=== PATIENT | male | born 1985 | race Caucasian/White ===

== ENCOUNTER 2016-07-27 07:41 | Emergency (ER) | payer SELFPAY ==
[~2016-07-27] VITALS: Ht 175.3 cm; Wt 73.8 kg
[~2016-07-27 07:41] MED LIST: ALBUAER19 INH; FLUT110A INH; HYDR-5688 PO
[2016-07-27 07:46] VITALS: BP 123/78; PULSE 85; TEMP 36.8; O2SAT 96; Ht 175.3 cm; Wt 73.8 kg
--- NOTE | 2016-07-27 08:32 | EMERGENCY ROOM VISIT NOTE ---
History Report prepared by Daisy: Rosa M Srinivasan Under the Supervision of: Dr. Marko Verma M.D. First contact with patient: 07:50 Chief Complaint: DIARRHEA Stated Complaint: DEHYDRATION,DIARRHEA Nursing Triage Summary: Diarrhea 3-4 days, low back pain. Denies n/v History of Present Illness The patient is a 30 year old male who presents to the Emergency Room with complaints of persistent diarrhea for the past 3 days. Last night was the worst of his symptoms. He reports being up all night with diarrhea. He was sent to the ED by his boss for a work excuse. He has been taking Pepto Bismol to no significant relief. He reports lower back pain. He denies any vomiting, fever, abdominal pain, or bloody diarrhea. He feels dehydrated and has been drinking a lot of fluids. He has been urinating. He does not recall eating any bad food. His grandmother was similarly sick recently. He has an appetite and has been eating soup. He denies having any medical problems. Source of History: patient Onset: 3 days ago Position: other (global) Quality: other (diarrhea) Timing: other (persistent) Associated Symptoms: + back pain (lower), No abdominal pain, No fevers, No vomiting Note: Pt denies bloody diarrhea. Review of Systems See HPI for pertinent positives & negatives. A total of 10 systems reviewed and were otherwise negative. Past Medical & Surgical Medical Problems: (1) Asthma (2) Bronchitis (3) Pleurisy (4) PNEUMONIA, ORGANISM NOS Family History No significant family history Social History Smoking Status: Former Smoker Alcohol Use: none Housing Status: lives with family Occupation Status: employed Current/Historical Medications Scheduled Fluticasone Propionate Hfa (Flovent Hfa 110MCG Inhaler), 1 PUFF INH BID Scheduled PRN Albuterol Inhaler (Ventolin Inhaler), 2 PUFFS INH UD PRN for SOB/Wheezing Hydrocodone/Acetaminophen 5MG/325MG ([place] 5MG/325MG), 1-2 TABLET PO Q6H PRN for Pain Allergies Coded Allergies: No Known Allergies (Verified , 03/25/14) Physical Exam Vital Signs Date Time Temp Pulse Resp B/P Pulse Ox O2 Delivery O2 Flow Rate FiO2 07/27/16 07:46 36.8 85 16 123/78 96 Room Air Physical Exam GENERAL: Patient is in no acute distress. HEENT: No acute trauma, normocephalic atraumatic, mucous membranes moist, no nasal congestion, no scleral icterus. NECK: No stridor, no adenopathy, no meningismus, trachea is midline. LUNGS: Clear to auscultation bilaterally, no wheeze, no rhonchi, breath sounds equal. HEART: Without murmurs gallops or rubs, regular rate and rhythm. ABDOMEN: Soft, mildly diffusely tender, bowel sounds positive and hyperactive, no hernias, no peritonitis. EXTREMITIES: No cyanosis or edema, full range of motion of all the joints without pain or difficulty, no signs for acute trauma. NEUROLOGIC: Oriented x 3, no acute motor or sensory deficits, no focal weakness. SKIN: No rash, no jaundice, no diaphoresis. Medical Decision & Procedures ED Course 0754: The patient was evaluated in room B2. A complete history and physical exam was performed. 0800: Reevaluated the patient. Discussed results and discharge instructions: he verbalized understanding and agreement. The patient is ready for discharge. Medical Decision Differential diagnosis: food borne or viral illness, dehydration, UTI, diverticulitis, electrolyte imbalance, GI bleeding. The patient presents with a few days of diarrhea. He has an appetite and has been trying to stay hydrated. He is still making urine. He has minimal to no pain, there has been no fever or vomiting. The patient feels that he just needs more time to push through this illness, his employer sent him to the ER for an evaluation. The patient does not need IV hydration, he is otherwise healthy and looks well, he is not febrile. He does have some hyperactive bowel sounds consistent with his diarrhea. The patient is being discharged to continue his hydration, a bland diet was suggested, Imodium for diarrhea. If he is worsening, he can return for reassessment. His illness is likely viral and/or food borne. Impression Primary Impression: Diarrhea Scribe Attestation The scribe's documentation has been prepared under my direction and personally reviewed by me in its entirety. I confirm that the note above accurately reflects all work, treatment, procedures, and medical decision making performed by me. Departure Information Dispostion Home / Self-Care Referrals No Doctor, Assigned (PCP) Forms HOME CARE DOCUMENTATION FORM, IMPORTANT VISIT INFORMATION, WORK / SCHOOL INSTRUCTIONS Patient Instructions My [facility] Additional Instructions use immodium as directed otc for your diarrhea tylenol for pain bland diet---crackers, soup, toast, gatorade return for fever, persistent symptoms or if not improving
== END 2016-07-27 08:08 | disposition home or self-care (01) ==
LOC: C.EDB 07:42
DX: R19.7 Diarrhea, unspecified (principal); J45.909 Unspecified asthma, uncomplicated; Z87.891 Personal history of nicotine dependence

== ENCOUNTER 2017-02-12 02:23 | Emergency (ER) | payer SELFPAY ==
[~2017-02-12] VITALS: Ht 175.3 cm; Wt 79.2 kg
[~2017-02-12 02:23] MED LIST changes: -HYDR-5688 PO
[2017-02-12 02:25] VITALS: TEMP 36.3; Ht 175.3 cm; Wt 79.2 kg
[2017-02-12 03:10] VITALS: BP 119/75; PULSE 81; O2SAT 99
--- NOTE | 2017-02-12 03:12 | EMERGENCY ROOM VISIT NOTE ---
ED Visit Note First contact with patient: 02:36 CHIEF COMPLAINT: Nose laceration HISTORY OF PRESENT ILLNESS: This 31-year-old male patient presents to the emergency department after cutting . His nose about 30 minutes ago. The patient states that he slipped in the bathroom, and struck the front of his nose on a newly installed toilet. The bleeding has stopped. Denies weakness or numbness of the face or jaw. No eye injuries or pain. The patient rates the pain as dull and 4/10. The patient denies any other injuries. The patient's Tetanus shot is up to date. REVIEW OF SYSTEMS: A 6 system review of systems was completed with positives and pertinent negatives listed in the HPI. ALLERGIES: Known allergies MEDICATIONS: No chronic medications PMH: Otherwise healthy SOCIAL HISTORY: Lives locally PHYSICAL EXAM: Vital Signs: Reviewed Nurse's notes, vital signs stable. GENERAL : White male, in no acute distress, well-developed, well-nourished. SKIN: There is a S shaped 1.5 cm long laceration on the anterior aspect of the nose. The edges gape apart with traction. There is no foreign material in the wound and it looks clean. There is no bleeding. No deep structures such as tendons, bones, or significant blood vessels are seen in the base of the wound. Normal strength and movement of the face. No significant epistaxis or septal hematoma. Capillary refill less than 2 seconds. Normal sensation to light and sharp touch. EMERGENCY DEPARTMENT COURSE: I examined the patient. Verbal consent was obtained to perform the procedure. Using sterile technique the wound was cleansed with Betadine. The area was sterilely draped. The patient declined topical or injectable anesthesia. The wound was explored and was as described above. The laceration was repaired using 3 simple interrupted 6-0 nylon sutures with the wound edges being well approximated. The patient tolerated the procedure well. Hemostasis was achieved. The area was cleaned with sterile saline and dressed with bacitracin ointment and bandage. The patient was discharged home in good condition. Problem List Medical Problems: (1) Asthma Status: Chronic (2) Bronchitis Status: Resolved (3) Pleurisy Status: Resolved (4) PNEUMONIA, ORGANISM NOS Status: Resolved Current/Historical Medications No Active Prescriptions or Reported Meds Allergies Coded Allergies: No Known Allergies (Verified , 02/12/17) Vital Signs Date Time Temp Pulse Resp B/P (MAP) Pulse Ox O2 Delivery O2 Flow Rate FiO2 02/12/17 02:25 36.3 79 18 127/82 100 Room Air Departure Information Impression Primary Impression: Laceration of nose Dispostion Home / Self-Care Condition GOOD Prescriptions No Active Prescriptions or Reported Meds Forms HOME CARE DOCUMENTATION FORM, IMPORTANT VISIT INFORMATION Patient Instructions My [facility], ED Laceration All, ED Scar Tips to Minimize Additional Instructions Keep wound clean and dry. Do not allow any crusting or dried blood to accumulate on sutures. If this occurs, use a mild soap/water on a Q-tip to clean the wound. Do not use Peroxide to clean the wound as this can delay healing Use an antibiotic ointment like Bacitracin for 3-4 days, then let wound dry. You may bathe and shower as normal, but DO NOT SOAK the wound. Suture removal in about 7 days with your Family Doctor or in the ER. Return sooner for any signs of infection, increasing redness, swelling, or drainage.
== END 2017-02-12 03:12 | disposition home or self-care (01) ==
LOC: C.EDB 02:24
DX: S01.21XA Laceration without foreign body of nose, initial encounter (principal); W01.198A Fall on same level from slipping, tripping and stumbling with subsequent striking against other object, initial encounter; J45.909 Unspecified asthma, uncomplicated

== ENCOUNTER 2017-03-02 13:53 | Emergency (ER) | payer SELFPAY ==
[~2017-03-02] VITALS: Ht 175.3 cm; Wt 76.0 kg
[2017-03-02 13:56] VITALS: BP 113/71; PULSE 95; TEMP 37.2; O2SAT 97; Ht 175.3 cm; Wt 76.0 kg
[2017-03-02] MEDS ORDERED: PENICILLIN V POTASSIUM 250 MG TAB PO ONE (14:30)
[2017-03-02] MEDS ORDERED: PENI500T2 PO (14:35)
--- NOTE | 2017-03-02 14:36 | EMERGENCY ROOM VISIT NOTE ---
History Report prepared by Daisy: Cesar Christian Under the Supervision of: Dr. Wesley Handley D.O. First contact with patient: 14:23 Chief Complaint: NECK PAIN Stated Complaint: NECK IS SWOLLEN AND HURTS History of Present Illness The patient is a 31 year old male who presents to the Emergency Room with complaints of a neck pain and swelling that began yesterday. The patient reports he had a cough and cold yesterday and states that he is having difficulty eating today. Source of History: patient Onset: 1 day ago Position: throat, neck Quality: other (swelling) Timing: constant Modifying Factors (Worsening): eating Associated Symptoms: + sorethroat, + cough Note: Pt reports he has a cold. Review of Systems See HPI for pertinent positives & negatives. A total of 10 systems reviewed and were otherwise negative. Past Medical & Surgical Medical Problems: (1) Asthma (2) Bronchitis (3) Pleurisy (4) PNEUMONIA, ORGANISM NOS Family History No significant family history Social History Smoking Status: Current Every Day Smoker Alcohol Use: none Housing Status: lives with family Occupation Status: employed Current/Historical Medications No Active Prescriptions or Reported Meds Allergies Coded Allergies: No Known Allergies (Verified , 02/12/17) Physical Exam Vital Signs Date Time Temp Pulse Resp B/P (MAP) Pulse Ox O2 Delivery O2 Flow Rate FiO2 03/02/17 13:56 37.2 95 20 113/71 97 Room Air Physical Exam CONSTITUTIONAL/VITAL SIGNS: Reviewed / noted above. GENERAL: Non-toxic in appearance. INTEGUMENTARY: Warm, dry, and [place]. HEAD: Normocephalic. EYES: without scleral icterus or trauma. ENT/OROPHARYNX: clear and moist. post oropharyngeal erythema and exudate. No abscess LYMPHADENOPATHY/NECK: Is supple without lymphadenopathy or meningismus. RESPIRATORY: Lungs clear and equal. CARDIOVASCULAR: Regular rate and rhythm. GI/ABDOMEN: Soft and nontender. No organomegaly or pulsatile mass. No rebound or guarding. Normal bowel sounds. EXTREMITIES: Warm and well perfused. BACK: No CVA tenderness. NEUROLOGICAL: Intact without focal deficits. PSYCHIATRIC: normal affect. MUSCULOSKELETAL: Normally developed with good muscle tone. Medical Decision & Procedures ED Course 1423: Previous medical records were reviewed. The patient was evaluated in room C12. A complete history and physical examination was performed. Medical Decision The differential diagnoses include viral syndrome, bacterial infection, and abscess. This is a 31-year-old male who presents to the ED with a chief complaint of a sore throat and right-sided neck pain. The patient states that his symptoms started yesterday. His vital signs are normal. He is afebrile. Exam of the throat reveals posterior oropharyngeal erythema and some minimal exudate without abscess or asymmetry. Anterior lymphadenopathy is noted. No other symptoms on exam or complaint thereof. The patient was started on penicillin. He was told to use throat lozenges, sprays, Tylenol or Motrin as needed for discomfort. Medication Reconcilliation Current Medication List: was personally reviewed by me Blood Pressure Screening Patient's blood pressure: Normal blood pressure Blood pressure disposition: Did not require urgent referral Impression Primary Impression: Acute pharyngitis Scribe Attestation The scribe's documentation has been prepared under my direction and personally reviewed by me in its entirety. I confirm that the note above accurately reflects all work, treatment, procedures, and medical decision making performed by me. Departure Information Dispostion Home / Self-Care Prescriptions Penicillin V Potassium (VEETIDS) 500 Mg Tab 500 MG PO QID, #40 TAB Prov: Wesley Handley D.O. 03/02/17 Referrals No Doctor, Assigned (PCP) Patient Instructions My [facility] Additional Instructions Take penicillin as prescribed. Use Tylenol/Motrin, throat lozenges and sprays for symptomatic relief.
== END 2017-03-02 14:43 | disposition home or self-care (01) ==
LOC: C.EDB 13:54 → C.EDC 14:43
DX: J02.9 Acute pharyngitis, unspecified (principal); R59.0 Localized enlarged lymph nodes; J45.909 Unspecified asthma, uncomplicated; F17.200 Nicotine dependence, unspecified, uncomplicated